=== PATIENT | female | born 1990 | race Two or more races ===

== ENCOUNTER 2017-04-01 13:31 | Outpatient (CLI) | payer OTHER ==
--- NOTE | 2017-04-01 15:13 | Diagnostic Imaging Report ---
Indication: Reason For Exam: PAIN Technique: 2 views of the chest Comparison: none. Findings: Lungs and pleural spaces are clear. Heart size is normal. Bones are unremarkable.. Impression: No acute process
--- NOTE | 2017-04-01 15:15 | Diagnostic Imaging Report ---
Indication: Left-sided lung and rib pain Technique: Multiple views of the left ribs Comparison: none Findings: No evidence of fracture. No gross pneumothorax Impression: Negative
== END 2017-04-01 15:31 | disposition home or self-care (01) ==
LOC: RAD 13:31
DX: R07.9 Chest pain, unspecified (principal); R07.81 Pleurodynia
CPT/HCPCS: 71046